=== PATIENT | female | born 1970 | race Caucasian/White ===

== ENCOUNTER → 2016-07-23 | Outpatient (CLI) | payer OTHER | LOC: MAMO 08:30 | DX: Z12.31 Encounter for screening mammogram for malignant neoplasm of breast (principal) | CPT/HCPCS: G0202 ==

== ENCOUNTER → 2020-06-30 | Outpatient (CLI) | payer OTHER ==
[~2020-06-30] VITALS: Ht 160 cm; Wt 97.5 kg
== END ==
LOC: OPSV 06-02 08:00
DX: M31.30 Wegener's granulomatosis without renal involvement (principal)
CPT/HCPCS: 96360; 96361; 96365; 96366; 96375; 96413; 96415; J2405; J2930; J7030; J9312

== ENCOUNTER → 2020-07-07 | Outpatient (CLI) | payer OTHER ==
[~2020-07-07] VITALS: Ht 160 cm; Wt 97.5 kg
== END ==
LOC: OPSV 08:00
DX: M31.30 Wegener's granulomatosis without renal involvement (principal)
CPT/HCPCS: 96365; 96366; 96367; 96375; 96413; 96415; J2405; J2930; J7050; J9312

== ENCOUNTER → 2020-07-14 | Outpatient (CLI) | payer OTHER ==
[~2020-07-14] VITALS: Ht 160 cm; Wt 97.5 kg
== END ==
LOC: OPSV 08:00
DX: M31.30 Wegener's granulomatosis without renal involvement (principal)
CPT/HCPCS: 96365; 96366; 96367; 96375; 96413; 96415; J2405; J2930; J7050; J9312

== ENCOUNTER → 2020-07-21 | Outpatient (CLI) | payer OTHER ==
[~2020-07-21] VITALS: Ht 160 cm; Wt 97.5 kg
== END ==
LOC: OPSV 08:00
DX: M31.30 Wegener's granulomatosis without renal involvement (principal)
CPT/HCPCS: 96365; 96366; 96375; 96413; 96415; J1720; J2405; J7050; J9312

== ENCOUNTER → 2021-05-28 | Outpatient (CLI) | payer OTHER ==
[~2021-05-28] VITALS: Ht 157.5 cm; Wt 95.3 kg
== END ==
LOC: EROP 11:36
DX: U07.1 COVID-19 (principal); Z23 Encounter for immunization; I12.9 Hypertensive chronic kidney disease with stage 1 through stage 4 chronic kidney disease, or unspecified chronic kidney disease; N18.9 Chronic kidney disease, unspecified
CPT/HCPCS: M0247; Q0247

== ENCOUNTER → 2021-07-30 | Outpatient (CLI) | payer OTHER ==
[2021-07-30 10:35] LABS: BUN/CREATININE RATIO 8 (0-10)
== END ==
LOC: LAB 09:17
PROVIDERS: Internal Medicine Nephrology
DX: M31.30 Wegener's granulomatosis without renal involvement (principal); E83.42 Hypomagnesemia
CPT/HCPCS: 36415; 80053; 82570; 83735; 84156

== ENCOUNTER → 2021-08-19 | Outpatient (CLI) | payer OTHER | LOC: EXRD 15:23 | DX: R05.1 Acute cough (principal); R91.1 Solitary pulmonary nodule | CPT/HCPCS: 71046 ==

== ENCOUNTER → 2021-08-31 | Outpatient (CLI) | payer OTHER | LOC: EXRD 13:04 | DX: J18.9 Pneumonia, unspecified organism (principal); R91.8 Other nonspecific abnormal finding of lung field | CPT/HCPCS: 71046 ==

== ENCOUNTER 2021-09-10 17:10 | Inpatient (IN) | payer OTHER ==
[~2021-09-10] VITALS: Ht 167.6 cm; Wt 91.2 kg
[~2021-09-10 17:10] MED LIST changes: -ALBUTEROL2.5 MG/3 M INH; -AMLODIPINE BESY10 MG PO; -ARAVA 20 MG TAB20 MG PO; -AZELASTINE137 MCG/0.; -BUSPIRONE HCL5 MG PO; -CITALOPRAM HBR40 MG PO; -COLESTIPOL HCL1 GM PO; -DEXAMETHASONE2 MG PO; -DOXYCYCLINE HY100 MG PO; -ELIQUIS5 MG PO; -FAMOTIDINE20 MG PO; -FENOFIBRATE145 MG PO; -FLONASE 0.05% N16 GM; -HYDRALAZINE HCL50 MG PO; -ICOSAPENT ETHYL1 GM PO; -IPRAT-ALBUT 0.5-3 ML NEB; -LEVOTHYROXINE50 MCG PO; -LISINOPRIL40 MG PO; -LORATADINE10 MG PO; -METOPROLOL SUC100 MG PO; -MONTELUKAST SOD10 MG PO; -PANTOPRAZOLE SO20 MG PO; -PREGABALIN300 MG PO; -PROAIR HFA8.5 GM INH; -REXULTI1 MG PO; -TIZANIDINE HCL2 MG PO; -TYLENOL SINUS1 EAC3 PO; -ZOCOR 40 MG TAB40 MG PO
[2021-09-10 19:23] LABS: BORDETELLA PARAPERTUSSIS Not Detected (Not Detectd); BORDETELLA PERTUSSIS Not Detected (Not Detectd); CHLAMYDIA PNEUMONIAE Not Detected (Not Detectd); CORONAVIRUS HKU1 Not Detected (Not Detectd); CORONAVIRUS NL63 Not Detected (Not Detectd); CORONAVIRUS OC43 Not Detected (Not Detectd); CORONOAVIRUS 229E Not Detected (Not Detectd); HUMAN METAPNEUMOVIRUS Not Detected (Not Detectd); HUMAN RHINOVIRUS/ENTEROVIRUS Not Detected (Not Detectd); INFLUENZA A Not Detected (Not Detectd); INFLUENZA B Not Detected (Not Detectd); MYCOPLASMA PNEUMONIAE Not Detected (Not Detectd); PARAINFLUENZA VIRUS 1 Not Detected (Not Detectd); PARAINFLUENZA VIRUS 2 Not Detected (Not Detectd); PARAINFLUENZA VIRUS 3 Not Detected (Not Detectd); PARAINFLUENZA VIRUS 4 Not Detected (Not Detectd); RESPIRATORY SYNCYTIAL VIRUS Not Detected (Not Detectd)
[2021-09-10 19:33] LABS: HEMOGLOBIN 12.7 gm/dl (12.3-15.3); RED BLOOD COUNT 4.38 M/UL (4.00-5.10)
[2021-09-10 20:29] LABS: SARS-CoV-2 NOT DETECTED (Not Detectd)
[2021-09-11 06:22] LABS: HEMOGLOBIN 11.2 gm/dl (12.3-15.3)
[2021-09-11 06:23] LABS: RED BLOOD COUNT 3.9 M/UL (4.00-5.10); WHITE BLOOD COUNT 5.2 K/UL (4.5-11.0)
[2021-09-11 06:51] LABS: BUN/CREATININE RATIO 21 (0-10)
[2021-09-11] MEDS ORDERED: FAMOTIDINE20 MG PO (18:40)
[2021-09-11] MEDS ORDERED: REXULTI1 MG PO (18:41)
[2021-09-11] MEDS ORDERED: FENOFIBRATE145 MG PO (18:42)
[2021-09-11] MEDS ORDERED: COLESTIPOL HCL1 GM PO (18:42)
[2021-09-11] MEDS ORDERED: ICOSAPENT ETHYL1 GM PO (18:43)
[2021-09-11] MEDS ORDERED: LEVOTHYROXINE50 MCG PO (18:44)
[2021-09-11] MEDS ORDERED: LISINOPRIL40 MG PO (18:45)
[2021-09-11] MEDS ORDERED: PANTOPRAZOLE SO20 MG PO (18:46)
[2021-09-11] MEDS ORDERED: TIZANIDINE HCL2 MG PO (18:47)
[2021-09-11] MEDS ORDERED: AZELASTINE137 MCG/0. (18:48)
[2021-09-11] MEDS ORDERED: FLONASE 0.05% N16 GM (18:50)
[2021-09-11] MEDS ORDERED: BUSPIRONE HCL5 MG PO (18:52)
[2021-09-11] MEDS ORDERED: PROAIR HFA8.5 GM INH (18:52)
[2021-09-11] MEDS ORDERED: HYDRALAZINE HCL50 MG PO (18:53)
[2021-09-11] MEDS ORDERED: CITALOPRAM HBR40 MG PO (18:53)
[2021-09-11] MEDS ORDERED: ARAVA 20 MG TAB20 MG PO (18:54)
[2021-09-11] MEDS ORDERED: LORATADINE10 MG PO (18:57)
[2021-09-11] MEDS ORDERED: METOPROLOL SUC100 MG PO (18:58)
[2021-09-11] MEDS ORDERED: AMLODIPINE BESY10 MG PO (18:58)
[2021-09-11] MEDS ORDERED: ZOCOR 40 MG TAB40 MG PO (18:59)
[2021-09-11] MEDS ORDERED: MONTELUKAST SOD10 MG PO (19:00)
[2021-09-11] MEDS ORDERED: PREGABALIN300 MG PO (19:00)
[2021-09-11] MEDS ORDERED: TYLENOL SINUS1 EAC3 PO (19:09)
[2021-09-11] MEDS ORDERED: ALBUTEROL2.5 MG/3 M INH (19:10)
[2021-09-11 23:50] LABS: BORDETELLA PARAPERTUSSIS Not Detected (Not Detectd); BORDETELLA PERTUSSIS Not Detected (Not Detectd); CHLAMYDIA PNEUMONIAE Not Detected (Not Detectd); CORONAVIRUS HKU1 Not Detected (Not Detectd); CORONAVIRUS NL63 Not Detected (Not Detectd); CORONAVIRUS OC43 Not Detected (Not Detectd); CORONOAVIRUS 229E Not Detected (Not Detectd); HUMAN METAPNEUMOVIRUS Not Detected (Not Detectd); HUMAN RHINOVIRUS/ENTEROVIRUS Not Detected (Not Detectd); INFLUENZA A Not Detected (Not Detectd); INFLUENZA B Not Detected (Not Detectd); MYCOPLASMA PNEUMONIAE Not Detected (Not Detectd); PARAINFLUENZA VIRUS 1 Not Detected (Not Detectd); PARAINFLUENZA VIRUS 2 Not Detected (Not Detectd); PARAINFLUENZA VIRUS 3 Not Detected (Not Detectd); PARAINFLUENZA VIRUS 4 Not Detected (Not Detectd); RESPIRATORY SYNCYTIAL VIRUS Not Detected (Not Detectd)
[2021-09-12 01:15] LABS: SARS-CoV-2 DETECTED (Not Detectd)
[2021-09-12 03:47] LABS: HEMOGLOBIN 10.6 gm/dl (12.3-15.3); RED BLOOD COUNT 3.69 M/UL (4.00-5.10); WHITE BLOOD COUNT 6.5 K/UL (4.5-11.0)
[2021-09-12 04:11] LABS: BUN/CREATININE RATIO 22 (0-10)
[2021-09-13 06:16] LABS: HEMOGLOBIN 10.9 gm/dl (12.3-15.3); RED BLOOD COUNT 3.75 M/UL (4.00-5.10)
[2021-09-13 06:23] LABS: WHITE BLOOD COUNT 9.5 K/UL (4.5-11.0)
[2021-09-13 06:39] LABS: BUN/CREATININE RATIO 23 (0-10)
--- NOTE | 2021-09-13 11:17 | NUR ---
ON ROOM AIR SAT TEST PATIENTS O2 SAT WS 88% WITHOUT O2. WILL CONTINUE TO MONITOR.
[2021-09-13] MEDS ORDERED: DOXYCYCLINE HY100 MG PO ×2 (12:12→12:18)
[2021-09-13] MEDS ORDERED: DEXAMETHASONE2 MG PO ×2 (12:12→12:18)
[2021-09-13] MEDS ORDERED: IPRAT-ALBUT 0.5-3 ML NEB ×2 (12:12→12:18)
[2021-09-13] MEDS ORDERED: ELIQUIS5 MG PO (12:18)
== END 2021-09-13 14:12 | disposition home health service (06) | DRG 175 ==
LOC: ER1 17:10 → MED SURG 4 23:29 → CDU 23:29 → MED SURG 4 23:29
PROVIDERS: Internal Medicine; Preventive Medicine Occupational Medicine; ADMIT Internal Medicine
PROC: B24BZZZ Ultrasonography of Heart with Aorta (ICD-10-PCS; principal; 2021-09-12)
DX: I26.93 Single subsegmental thrombotic pulmonary embolism without acute cor pulmonale (principal); J96.01 Acute respiratory failure with hypoxia; J15.9 Unspecified bacterial pneumonia; U07.1 COVID-19; M31.30 Wegener's granulomatosis without renal involvement; E66.9 Obesity, unspecified; I10 Essential (primary) hypertension; E78.5 Hyperlipidemia, unspecified; M47.896 Other spondylosis, lumbar region; Z98.890 Other specified postprocedural states; Z90.49 Acquired absence of other specified parts of digestive tract; Z88.8 Allergy status to other drugs, medicaments and biological substances; Z96.82 Presence of neurostimulator; Z68.32 Body mass index [BMI] 32.0-32.9, adult
CPT/HCPCS: ECHO; 36415; 71045; 80048; 80053; 81001; 82550; 82553; 82728; 82803; 83605; 83690; 83880; 84484; 85025; 85379; 85652; 86140; 87040; 87086; 87633; 93306; 93970; 94640; 94664; 94760; 96374; 96375; 99285; G0378; J0696; J1100; J2930; J7030; Q9967

== ENCOUNTER → 2021-09-10 | Outpatient (CLI) | payer OTHER ==
[~2021-09-10] MED LIST: ALBUTEROL2.5 MG/3 M INH; AMLODIPINE BESY10 MG PO; ARAVA 20 MG TAB20 MG PO; AZELASTINE137 MCG/0.; BUSPIRONE HCL5 MG PO; CITALOPRAM HBR40 MG PO; COLESTIPOL HCL1 GM PO; DEXAMETHASONE2 MG PO; DOXYCYCLINE HY100 MG PO; ELIQUIS5 MG PO; FAMOTIDINE20 MG PO; FENOFIBRATE145 MG PO; FLONASE 0.05% N16 GM; HYDRALAZINE HCL50 MG PO; ICOSAPENT ETHYL1 GM PO; IPRAT-ALBUT 0.5-3 ML NEB; LEVOTHYROXINE50 MCG PO; LISINOPRIL40 MG PO; LORATADINE10 MG PO; METOPROLOL SUC100 MG PO; MONTELUKAST SOD10 MG PO; PANTOPRAZOLE SO20 MG PO; PREGABALIN300 MG PO; PROAIR HFA8.5 GM INH; REXULTI1 MG PO; TIZANIDINE HCL2 MG PO; TYLENOL SINUS1 EAC3 PO; VITAMIN D21250 MCG PO; ZOCOR 40 MG TAB40 MG PO
== END ==
LOC: EXRD 13:44
DX: J18.9 Pneumonia, unspecified organism (principal)
CPT/HCPCS: 71046

== ENCOUNTER → 2021-09-23 | Outpatient (CLI) | payer OTHER ==
[~2021-09-23] MED LIST changes: +ALBUTEROL2.5 MG/3 M INH; +AMLODIPINE BESY10 MG PO; +ARAVA 20 MG TAB20 MG PO; +AZELASTINE137 MCG/0.; +BUSPIRONE HCL5 MG PO; +CITALOPRAM HBR40 MG PO; +COLESTIPOL HCL1 GM PO; +DEXAMETHASONE2 MG PO; +DOXYCYCLINE HY100 MG PO; +ELIQUIS5 MG PO; +FAMOTIDINE20 MG PO; +FENOFIBRATE145 MG PO; +FLONASE 0.05% N16 GM; +HYDRALAZINE HCL50 MG PO; +ICOSAPENT ETHYL1 GM PO; +IPRAT-ALBUT 0.5-3 ML NEB; +LEVOTHYROXINE50 MCG PO; +LISINOPRIL40 MG PO; +LORATADINE10 MG PO; +METOPROLOL SUC100 MG PO; +MONTELUKAST SOD10 MG PO; +PANTOPRAZOLE SO20 MG PO; +PREGABALIN300 MG PO; +PROAIR HFA8.5 GM INH; +REXULTI1 MG PO; +TIZANIDINE HCL2 MG PO; +TYLENOL SINUS1 EAC3 PO; +ZOCOR 40 MG TAB40 MG PO
== END ==
LOC: HEART 5 16:15
DX: R06.02 Shortness of breath (principal)
CPT/HCPCS: 94060; 94729; 95012

== ENCOUNTER → 2021-10-06 | Outpatient (CLI) | payer OTHER | LOC: SLEEP 21:30 | DX: J45.909 Unspecified asthma, uncomplicated (principal) | CPT/HCPCS: 95810 ==

== ENCOUNTER → 2021-10-13 | Outpatient (CLI) | payer OTHER ==
[~2021-10-13] VITALS: Ht 157.5 cm; Wt 92.5 kg
== END ==
LOC: OPSV 09-23 08:00
DX: M31.30 Wegener's granulomatosis without renal involvement (principal)
CPT/HCPCS: 96361; 96375; 96413; 96415; J2405; J2930; J7030; J9312

== ENCOUNTER → 2021-10-22 | Outpatient (CLI) | payer OTHER | LOC: OPSV 08:38 | DX: M31.30 Wegener's granulomatosis without renal involvement (principal) | CPT/HCPCS: 96361; 96375; 96413; 96415; J2405; J2930; J7030; J9312 ==

== ENCOUNTER → 2021-10-29 | Outpatient (CLI) | payer OTHER | LOC: OPSV 08:17 | DX: M31.30 Wegener's granulomatosis without renal involvement (principal) | CPT/HCPCS: 96361; 96375; 96413; 96415; J2405; J2930; J7030; J9312 ==

== ENCOUNTER → 2021-11-04 | Outpatient (CLI) | payer OTHER | LOC: OPSV 08:34 | DX: M31.30 Wegener's granulomatosis without renal involvement (principal) | CPT/HCPCS: 96361; 96375; 96413; 96415; J2405; J2930; J7030; J9312 ==

== ENCOUNTER → 2021-11-23 | Outpatient (CLI) | payer OTHER | LOC: KOH-I 12:54 | DX: R93.89 Abnormal findings on diagnostic imaging of other specified body structures (principal) | CPT/HCPCS: 71250 ==

== ENCOUNTER → 2022-01-27 | Outpatient (CLI) | payer OTHER | LOC: US 13:38 | DX: M31.30 Wegener's granulomatosis without renal involvement (principal) ==